=== PATIENT | male | born 1960 | race Caucasian/White ===

== ENCOUNTER → 2021-06-25 15:48 | Outpatient (BNVA) | payer OTHER, SELFPAY | PROVIDERS: PCP Internal Medicine; Visit Provider Physician Assistant | DX: Z13.89 Encounter for screening for other disorder (principal) ==

== ENCOUNTER → 2021-07-02 13:53 | Outpatient (BNVA) | payer OTHER, SELFPAY | PROVIDERS: PCP Internal Medicine; Visit Provider Physician Assistant | DX: E66.01 Morbid (severe) obesity due to excess calories (principal) ==

== ENCOUNTER → 2021-08-04 16:00 | Outpatient (BNVA) | payer OTHER, SELFPAY | PROVIDERS: PCP Internal Medicine; Visit Provider Counselor Mental Health | DX: F43.20 Adjustment disorder, unspecified (principal); E66.01 Morbid (severe) obesity due to excess calories | CPT/HCPCS: 90791 ==

== ENCOUNTER → 2021-09-04 15:13 | Outpatient (BNVA) | payer OTHER, SELFPAY | PROVIDERS: PCP Internal Medicine; Visit Provider Dietitian, Registered | DX: E66.01 Morbid (severe) obesity due to excess calories (principal); Z68.42 Body mass index [BMI] 45.0-49.9, adult | CPT/HCPCS: 97802 ==

== ENCOUNTER 2021-09-15 07:56 | Outpatient (REF) | payer OTHER, SELFPAY ==
--- NOTE | ~2021-09-15 | FL_ITS ---
EXAMINATION: UPPER GI SERIES AND CHEST X-RAY CLINICAL INFORMATION: Morbid/severe obesity. COMPARISON: None. TECHNIQUE: Routine upper GI air-contrast study was performed in upright and lying position. Chest 2 views. Dose area product: 35.416. Fluoroscopy time: 1.5 minutes. FINDINGS: UPPER GI: Following oral administration of thick barium and effervescent granules there is normal propagation of bolus from the oral cavity through the esophagus into the stomach without any evidence of obstruction, narrowing or stricture. On placing patient supine and prone lying the course, caliber and peristalsis of the stomach, duodenal bulb and the sweep is normal. The mucosal pattern of the stomach and the duodenum is normal. There is mild gastroesophageal reflux without hiatal hernia. CHEST X-RAY: The lungs are well expanded and clear. The heart size and pulmonary vascularity is normal. No gross bony abnormality is seen. FL/FL upper GI series IMPRESSION: Mild gastroesophageal reflux otherwise unremarkable upper GI exam. Unremarkable chest exam.
--- NOTE | ~2021-09-15 | US_ITS ---
EXAMINATION: US COMPLETE ABDOMEN WITH LIVER ELASTOGRAPHY CLINICAL INFORMATION: Morbid/severe obesity due to excess calories. COMPARISON: None. TECHNIQUE: Real-time imaging of the abdominal viscera. Noninvasive ultrasound liver fibrosis assessment is performed using Aleena ElastPQ point quantification shear wave elastography (2D-SWE) with a C5-2 MHz transducer. Multiple elastography samples are obtained. FINDINGS: Suboptimal images due to body habitus. PANCREAS: The visualized pancreatic head and body are normal in appearance. The remainder of the pancreas is obscured from visualization by the overlying bowel gas. ABDOMINAL AORTA: The proximal, middle, and distal aortic segments are normal in caliber. INFERIOR VENA CAVA: Visualized portions are normal. LIVER: Normal. The liver demonstrates normal size, contour and increased echogenicity. No focal lesion or intrahepatic biliary duct dilatation. The right lobe measures 16.4 cm in length. The left lobe measures 10.9 cm in length. Portal flow is hepatopedal. Shear wave liver elastography median stiffness is 2.13 m/s (reference: Normal median stiffness is 1.3 m/s or less). IQR/median stiffness to assess sampling precision is 0.19 (reference: good quality data set is IQR/median stiffness of 0.15 or less). GALLBLADDER: There is an echogenic stone measuring 1.8 x 1.4 x 2.3 cm. Gallbladder wall thickness is 0.19 cm and normal. No pericholecystic fluid collection. COMMON BILE DUCT: Normal in caliber measuring 0.46 cm in diameter. RIGHT KIDNEY: Normal. No hydronephrosis. No renal calculi or focal parenchymal lesions. The kidney measures 13.4 cm in maximum dimension. LEFT KIDNEY: Normal. No hydronephrosis. No renal calculi or focal parenchymal lesions. The kidney measures 12.5 cm in maximum dimension. SPLEEN: Normal. The spleen measures 9.6 cm in maximum dimension. FREE FLUID: None. US/US abdomen comp w elastography IMPRESSION: 1. Mild hepatic steatosis without focal lesion. 2. Gallstones slightly impacted. No wall thickening. 3. Anechoic cyst upper pole left kidney. 4. Liver elastography: Median liver stiffness measures 2.13 cm corresponding to cACLD (ruled in). REFERENCE: Society of Radiologists in Ultrasound Liver Stiffness Thresholds (2020): LIVER STIFFNESS THRESHOLDS: *Liver Stiffness equal or less than 1.3 m/s: High probability of being normal. *Liver Stiffness less than 1.7 m/s: In the absence of other known clinical signs, rules out compensated advanced chronic liver disease. *Liver Stiffness 1.7-2.1 m/s: Suggestive of compensated advanced chronic liver disease but need further test for confirmation. *Liver Stiffness over 2.1 m/s: Rules in compensated advanced chronic liver disease. *Liver Stiffness over 2.4 m/s: Suggestive of clinically significant portal hypertension. QUALITY OF DATA SET: *IQR/Median value equal or less than 0.15 implies a quality data set. *IQR/Median value over 0.15 implies a poor quality data set. SIGNIFICANT CHANGE FROM PRIOR EXAM: Significant change if liver stiffness measurement is 10% or greater from prior exam. OTHER CONSIDERATIONS: The stage of liver fibrosis may be overestimated in the setting of acute hepatitis, liver inflammation, elevated liver function tests, hepatic vascular congestion, obstructive cholestasis, non-fasting state, and infiltrative diseases such as amyloidosis and lymphoma. In some patients with NAFLD, the liver stiffness thresholds for compensated advanced chronic liver disease may be lower. In causes other than viral hepatitis and NAFLD, liver stiffness thresholds are not well established.
== END 2021-09-15 07:57 | disposition home or self-care (01) ==
LOC: HO.US 07:56
PROVIDERS: Visit Provider Physician Assistant
DX: Z01.818 Encounter for other preprocedural examination (principal); E66.01 Morbid (severe) obesity due to excess calories; I10 Essential (primary) hypertension
CPT/HCPCS: 71046; 74240; 76705; 76981

== ENCOUNTER → 2021-10-12 12:30 | Outpatient (BNVA) | payer OTHER, SELFPAY | PROVIDERS: Visit Provider Counselor Mental Health | DX: F43.20 Adjustment disorder, unspecified (principal); E66.01 Morbid (severe) obesity due to excess calories | CPT/HCPCS: 90882 ==

== ENCOUNTER 2021-10-15 16:03 | Outpatient (REF) | payer OTHER, SELFPAY ==
[2021-10-15 17:48] LABS: TSH reflex Free T4 1.09 uIU/mL (0.32-4.0); Vitamin D 25-OH Total 40.5 ng/mL (>30)
[2021-10-15 17:56] LABS: Folate 7.9 ng/mL (> or = 4.0); Vitamin B12 215 pg/mL (200-900)
[2021-10-16 13:12] LABS: Calcium (PTHI) 9.6 mg/dL (8.6-10.3); PTHI 48 pg/mL (16-77)
[2021-10-17 22:17] LABS: Protein C Activity 163 % (70-180); Protein S Activity rflx Tot&Fr 90 % (70-150)
[2021-10-19 18:56] LABS: Anti-Thrombin III Antigen 67 % (80-120)
[2021-10-21 01:22] LABS: Zinc 93 mcg/dL (60-130)
[2021-10-21 17:32] LABS: Vitamin A 58 mcg/dL (38-98)
[2021-10-22 11:11] LABS: Vitamin B1 14 nmol/L (8-30)
[2021-10-25 22:06] LABS: Factor V Leiden NEGATIVE
== END 2021-10-15 16:04 | disposition home or self-care (01) ==
LOC: HO.LAB 16:03
PROVIDERS: PCP Internal Medicine; Visit Provider Physician Assistant
DX: Z01.818 Encounter for other preprocedural examination (principal); E66.01 Morbid (severe) obesity due to excess calories; I26.99 Other pulmonary embolism without acute cor pulmonale; Z98.890 Other specified postprocedural states; Z98.84 Bariatric surgery status; Z90.3 Acquired absence of stomach [part of]
CPT/HCPCS: 36415; 81241; 82306; 82607; 82746; 83970; 84425; 84443; 84590; 84630; 85301; 85302; 85303; 85305; 85306; 86140

== ENCOUNTER → 2021-11-19 09:11 | Outpatient (REF) | payer OTHER, SELFPAY ==
--- NOTE | ~2021-11-19 | NM_ITS ---
Lexiscan Myocardial perfusion study Indication: Preoperative cardiovascular evaluation Technique: The patient was brought in for a Lexiscan perfusion study on 11/19/2021 and was injected 0.4 mg of Lexiscan intravenously. Within a minute of this injection 35 mCi of sestamibi was given intravenously. Images were obtained using the SPECT gamma camera interlaced with the gating device. Images were obtained in supine position. Resting perfusion study was performed on 11/26/2021. Patient was administered 35 mCi of sestamibi intravenously at rest. Images were then obtained in supine position. Total DLP 151mGy-cm. Images were processed with the software and compared side to side in short axis, horizontal long axis and vertical long axis views. Findings: Raw acquisition reviewed. There is subdiaphragmatic tracer uptake, more so in the stress acquisition. The stress perfusion study showed diminished tracer uptake along the inferior wall, apical anterior wall and adjacent portions of apex. There is improvement with CT at admission correction suggestive of mostly artifactual causes including diaphragmatic attenuation artifact and soft tissue attenuation artifact. The gated study shows mildly diminished LV systolic function with calculated LVEF of 45%. LV cavity is normal in size. The gated study shows diminished wall thickening/contractility in the inferior wall. Resting study shows mildly reduced tracer uptake along the inferior wall but otherwise unremarkable. Gating at rest reveals normal wall motion with ejection fraction at 51%. The findings are consistent with partially reversible inferior perfusion defect; reversible distal anterior perfusion defect; based on improvement with CT attenuation correction, likely all artifactual. NM/NM pastora perf SPECT rest & str Impression: 1. Myocardial perfusion imaging study shows no clear evidence of ischemia or infarction. Defects seen in the inferior wall as well as distal anterior wall probably artifactual. 2. Gated LVEF is 45% during stress and 51% during rest. Correlate with echocardiogram. 3. Transient ischemic dilatation not present. EKG component of the test reported separately.
--- NOTE | 2021-11-19 09:13 | CA_ITS ---
Acquisition Time: 2021-11-19 10:37:30 Total Exercise Time: 00:02:00 Test Indications: SOB, PREOP Medications: SEE CHART Protocol: LEXISCAN Max HR: 116 BPM 72% of Pred: 161 BPM Max BP: 124/068 mmHG Max Work Load: 1.6 METS Pharmacological stress test with Lexiscan injection, while walking slow on treadmill, without anginal symptoms, without arrythmia, with normotensive response to injection, with nondiagnostic EKG for ischemia. In recovery he reported feeling sob and lightheaded which was treated with Aminophylline 75mg IVP to reverse Lexiscan with resolution of symptoms. Nuclear images pending. Test reviewed with Dr Carrizales Referred By: Travis Cavazos Overread By: MC MOSCOSO
--- NOTE | 2021-11-19 09:13 | CA_ITS ---
Transthoracic Echocardiogram Patient (Last, First, Middle): Dante Prather, Gender: Male Date of : 1960 Age: 61 Procedure Date: 11/19/2021 Procedure Type: Transthoracic Echocardiogram Location: OP Height: 177.8 cm Weight: 123.38 kg BSA: 2.38 m2 Heart Rate: bpm BP: 124 / 66 mmHg Bicycle Inspector: ZAIN Referring MD: Travis Cavazos MD Tax Associate: Eddie Carrizales MD Symptoms: R94.31 - Abnormal electrocardiogram [ECG] [EKG] Study Quality: Technically Difficult/contrast ECG Rhythm: Sinus Conclusions: - 1. Normal LV systolic function with grade 1 diastolic dysfunction 2. Moderately dilated right ventricle with normal systolic function 3. Normal cardiac valvular Doppler 4. Normal RV systolic pressure 5. No gross pericardial effusion Findings Procedure Information Contrast agent, definity, is being given per protocol without apparent complications. Left Ventricle Normal left ventricular size, thickness, and systolic function. The visually estimated ejection fraction is between 55-60%. Spectral Doppler is indicative of an impaired relaxation filling pattern. E/E prime ratio is <8, consistent with normal filling pressures. Evidence suggests grade I (mild) diastolic dysfunction. Right Ventricle Moderately increased right ventricular cavity size. There is normal right ventricular systolic function. Atria The left atrium is likely dilated. Interatrial shunt cannot be excluded. The right atrium was not well visualized. Aortic Valve The aortic valve structure and function is likely normal. There is no aortic valve stenosis. There is no aortic valve regurgitation. Mitral Valve Likely normal mitral valve structure and function. There is trace mitral valve regurgitation. There is no mitral valve stenosis. Pulmonic Valve The pulmonic valve was not well visualized. Tricuspid Valve Likely normal tricuspid valve structure and function. There is trace tricuspid valve regurgitation. The right ventricular systolic pressure is normal. The right ventricular systolic pressure is 22 mmHg. Normal right atrial pressure. There is no evidence of pulmonary hypertension. Great Vessels All visible segments of the aorta are normal in size. The pulmonary artery was not well visualized. Venous The inferior vena cava is normal in size. Pericardium/Pleural There is no evidence of pericardial effusion. Prior Study Comparison No prior study available for comparison. Measurements 2D Linear Measurements IVSd: 1.09 0.6-0.9/0.6-1.0 cm LVIDd: 5.59 3.9-5.3/4.2-5.9 cm LVIDd Index: 2.35 2.4-3.2/2.2-3.1 cm/m2 LVIDs: 3.79 2.0-3.6 cm LVPWd: 0.88 0.7-1.1 cm LA Diam: 3.70 2.7-3.8/3.0-4.0 cm LAIDs Index: 1.55 1.5-2.3 cm/m2 LV Mass: 267.70 67-162/88-224 g LV Mass Index: 112.48 43-95/49-115 g/m2 LVOT Diam: 2.30 3.0+(-)1.3 cm 2D Systolic Function EF 4C: 51.90 >55% EF 2C: 55.00 >55% Mitral Valve MV Pk E: 0.47 MV PK A: 0.67 MV Decel Time: 406.00 E/A: 0.70 E'Lateral: 8.92 E'Medial: 6.74 E/E' Med: 6.90 E/E' Lat: 5.20 PHT: 119.00 MVA PHT: 1.85 Decel Gage: 1.15 Aortic Valve AoV Pk Edgard: 1.34 AoV Mn Edgard: 0.91 AoV VTI: 0.25 AoV Pk Grad: 7.00 Aov Mn Grad: 4.00 CORRINE Cont.VTI: 3.78 LVOT LVOT Pk Edgard: 1.07 LVOT Mn Edgard: 0.71 LVOT VTI: 0.22 LVOT Pk Grad: 5.00 LVOT Mn Grad: 2.00 LVOT Diam: 2.30 LVOT Area: 4.15 Diastolic Function MV Pk E: 0.47 MV Pk A: 0.67 E/A: 0.70 E'Medial: 6.74 E/E' Med: 6.90 E' Laterial: 8.92 E/E' Lat: 5.20 Right Ventricle TAPSE (mm): 24.90 TVS' Edgard: 14.10 Tricuspid Valve TR Pk Edgard: 2.19 TR Pk Grad: 19.00 RA Press: 3.00 RVSP: 22.00 Great Vessels Aorta Sinus of Valsalva: 3.48 2.0-3.5 cm Ao Asc: 3.30 2.1-3.4 cm Updated in Other Vendor System with Status of Final Eddie Carrizales MD electronically signed on 11/20/2021 3:21:40 PM with status of Final
== END ==
LOC: HO.CARD 09:11
PROVIDERS: PCP Internal Medicine; Visit Provider Surgery
DX: Z01.810 Encounter for preprocedural cardiovascular examination (principal); R06.02 Shortness of breath; I10 Essential (primary) hypertension; I26.99 Other pulmonary embolism without acute cor pulmonale; R94.31 Abnormal electrocardiogram [ECG] [EKG]
CPT/HCPCS: 78452; 93017; 93306; A9500; J0280; J2785; Q9957

== ENCOUNTER → 2021-11-26 12:21 | Outpatient (BNVA) | payer OTHER, SELFPAY | PROVIDERS: PCP Internal Medicine; Visit Provider Internal Medicine | DX: Z01.810 Encounter for preprocedural cardiovascular examination (principal); I51.7 Cardiomegaly; I26.99 Other pulmonary embolism without acute cor pulmonale; I67.9 Cerebrovascular disease, unspecified; E66.01 Morbid (severe) obesity due to excess calories; Z68.39 Body mass index [BMI] 39.0-39.9, adult | CPT/HCPCS: 93005 ==

== ENCOUNTER 2021-11-28 11:18 | Outpatient (REF) | payer OTHER, SELFPAY ==
[2021-11-28 13:50] LABS: MANUAL DIFF FLAG NO
[2021-11-28 13:51] LABS: Basophils Absolute Auto 0.1 X10*3/uL (0.0-0.2); Basophils Percent Auto 0.5 % (0-2); Eosinophils Absolute Auto 0.2 X10*3/uL (0.0-0.4); Eosinophils Percent Auto 1.9 % (0-4); Hematocrit 38.1 % (42.0-52.0); Hemoglobin 13.6 g/dl (14.0-18.0); Imm Gran Abs Auto 0.06 X10*3/uL (0.00-0.03); Imm Gran Pct Auto 0.6 % (0.0-0.4); Lymphocytes Absolute Auto 1.3 X10*3/uL (1.2-4.9); Lymphocytes Percent Auto 12.6 % (20-40); Mean Corpuscular HGB Conc 35.7 g/dl (31.0-36.0); Mean Corpuscular Hemoglobin 33.9 pg (27.0-33.0); Mean Platelet Volume 10.7 fL (9.4-12.4); Monocytes Absolute Auto 0.7 X10*3/uL (0.1-1.2); Monocytes Percent Auto 6.6 % (2-11); Neutrophils Percent Auto 77.8 % (45-73); Platelet Count 289 X10*3/uL (160-400); Red Blood Count 4.01 X10*6/uL (4.60-5.80); Red Cell Distribution Width 13.2 % (11.0-16.0); White Blood Count 10.2 X10*3/uL (4.8-10.8)
[2021-11-28 13:59] LABS: INTERNATIONAL NORM RATIO 1.1 (0.9-1.1); Prothrombin Time 12.3 SEC (10.0-13.1)
[2021-11-28 14:01] LABS: Partial Thromboplastin Time 34.5 SEC (26.0-36.4)
[2021-11-28 14:08] LABS: Alanine Aminotransferase 58 U/L (0-40); Albumin Level 4.2 g/dL (3.5-5.0); Alkaline Phosphatase 87 U/L (39-117); Anion Gap 17 (12-20); Aspartate Amino Transferase 34 U/L (5-37); Bilirubin Total 1.7 mg/dL (0.0-1.0); Blood Urea Nitrogen 15 mg/dL (9-16); C Reactive Protein 1.78 mg/dL (< or = 0.50); Calcium 9.6 mg/dL (8.4-10.2); Carbon Dioxide 24 mmol/L (22-29); Chloride 105 mmol/L (96-108); Cholesterol 120 mg/dL; Estimated Glomerular Filt Rate > 60; Glucose Random 92 mg/dL (60-115); HDL Cholesterol 61 mg/dL; LDL Cholesterol Calculated 44 mg/dl; Sodium 142 mmol/L (135-145); Total Protein 6.8 g/dL (6.5-8.0); Triglycerides 79 mg/dL
[2021-11-28 14:28] LABS: Insulin 12 uU/mL (2-29); TSH reflex Free T4 1.51 uIU/mL (0.32-4.0)
[2021-11-28 14:29] LABS: Estimated Average Glucose 100 mg/dL; Hemoglobin A1c % 5.1 %
== END 2021-11-28 11:19 | disposition home or self-care (01) ==
LOC: HO.HMGCLDS 11:18
PROVIDERS: PCP Internal Medicine; Visit Provider Surgery
DX: E66.01 Morbid (severe) obesity due to excess calories (principal); I10 Essential (primary) hypertension; K21.9 Gastro-esophageal reflux disease without esophagitis; E78.5 Hyperlipidemia, unspecified
CPT/HCPCS: 36415; 80053; 80061; 83036; 83525; 84443; 85025; 85610; 85730; 86140

== ENCOUNTER → 2022-05-24 14:30 | Outpatient (BNVA) | payer OTHER, SELFPAY | PROVIDERS: PCP Internal Medicine; Referring Provider Internal Medicine; Visit Provider Internal Medicine | DX: R55 Syncope and collapse (principal); I51.7 Cardiomegaly; I67.9 Cerebrovascular disease, unspecified | CPT/HCPCS: 93005 ==